=== PATIENT | male | born 1995 | race Asian ===

== ENCOUNTER 2020-10-06 04:37 | Day surgery (SDC) | payer OTHER ==
[2020-10-05 11:16] VITALS: BMI 24.3
[2020-10-06 08:54] VITALS: TEMP 97.8
[2020-10-06 09:17] VITALS: BP 101/62; PULSE 58
== END 2020-10-06 10:10 | disposition home or self-care (01) ==
LOC: JASU-ENDO 04:37
PROVIDERS: ATTEND Internal Medicine Gastroenterology
PROC: 0DB68ZX Excision of Stomach, Via Natural or Artificial Opening Endoscopic, Diagnostic (ICD-10-PCS; 2020-10-06)
PROC: 0DB98ZX Excision of Duodenum, Via Natural or Artificial Opening Endoscopic, Diagnostic (ICD-10-PCS; principal; 2020-10-06 08:45)
DX: Z13.89 Encounter for screening for other disorder (principal); G60.9 Hereditary and idiopathic neuropathy, unspecified
CPT/HCPCS: 88305-TC; 88342-TC